=== PATIENT | male | born 1955 | race Asian ===

== ENCOUNTER 2021-08-02 12:02 | Inpatient (IN) ==
[2021-08-02] MEDS ORDERED: MAGNESIUM SULF RIDER 4 GM/100 ML PREMIX IV PRN (12:58)
[2021-08-02] MEDS ORDERED: ACETAMINOPHEN 325 MG TABLET PO PRN (12:58)
[2021-08-02] MEDS ORDERED: MORPHINE 4 MG/1 ML VIAL IV PRN (12:58)
[2021-08-02] MEDS ORDERED: MAGNESIUM SULF RIDER 2 GM/50 ML PREMIX IV PRN (12:58)
[2021-08-02] MEDS ORDERED: GLUCAGON 1 MG VIAL IM PRN ×2 (13:13→14:08)
[2021-08-02] MEDS ORDERED: DEXTROSE 10% 250 ML BAG IV PRN (13:13)
[2021-08-02] MEDS ORDERED: ENOXAPARIN 100 MG/ML SYRINGE SUBCUT ONE (13:30)
[2021-08-02 13:49] LABS: Basophils % 0.6 % (0.0-0.8); Eosinophils % 0.6 % (0.00-10.9); Hematocrit 30.3 VOL% (42.0-52.0); Hemoglobin 9.8 GM/DL (14.0-18.0); Immature Granulocytes % 0.4 %; Immature Granulocytes Absolute 0.03 #; Lymphocytes # 0.9 10*3/uL (1.4-4.0); Lymphocytes % 12.3 % (21.2-54.2); Mean Corpuscular HGB Conc 32.3 GM/DL (32-36); Mean Corpuscular Volume 84.9 FL (87-102); Mean Platelet Volume 12.2 FL (9.6-12.0); Monocytes % 6.3 % (1.7-12.7); Neutrophils % 79.8 % (38.7-73.9); Platelet Count 242 T/CUMM (130-400); Red Blood Count 3.57 MC/CUMM (3.8-5.5); White Blood Count 7.1 T/CUMM (4-12)
[2021-08-02] MEDS ORDERED: POTASSIUM CHLORIDE RIDER 10 MEQ/100 ML PREMIX IV PRN (14:06)
[2021-08-02] MEDS ORDERED: DEXTROSE 50% 25 GM/50 ML VIAL IV PRN (14:08)
[2021-08-02 14:18] LABS: Albumin 3.7 G/DL (3.4-5.0); Bilirubin,Total 0.5 MG/DL (0.20-1.00); Calcium 8.5 MG/DL (8.5-10.1); Osmolality,Calculated 299.4 MOS/KG (273-304); Potassium 4.8 MMOL/L (3.5-5.1); Thyroid Stimulating Hormone 0.129 uIU/ml (0.358-3.74); Total Protein 7.4 G/DL (6.4-8.2)
[2021-08-02] MEDS: NITROGLYCERIN 2% OINT 1 INCH/GM PACK TOP SCH ×2 (16:08→18:26)
[2021-08-02] MEDS ORDERED: ASPIRIN CHEW 81 MG TABLET PO ONE (16:09)
[2021-08-02] MEDS: glipiZIDE 10 MG TABLET PO SCH (18:24)
[2021-08-02] MEDS: INSULIN REGULAR 100 UNIT/ML SUBCUT SCH ×2 (18:55→21:17)
[2021-08-02] MEDS: carvediloL 3.125 MG TABLET PO SCH (21:10)
[2021-08-02] MEDS: ATORVASTATIN 40 MG TABLET PO SCH (21:10)
[2021-08-03] MEDS: NITROGLYCERIN 2% OINT 1 INCH/GM PACK TOP SCH ×4 (02:06→17:30)
[2021-08-03 05:47] LABS: Basophils # 0.1 10*3/uL (0.0-0.2); Basophils % 0.9 % (0.0-0.8); Eosinophils # 0.2 10*3/uL (0.0-0.87); Eosinophils % 3.3 % (0.00-10.9); Hematocrit 27.2 VOL% (42.0-52.0); Hemoglobin 8.8 GM/DL (14.0-18.0); Immature Granulocytes % 0.4 %; Immature Granulocytes Absolute 0.02 #; Lymphocytes # 1.5 10*3/uL (1.4-4.0); Mean Corpuscular HGB Conc 32.4 GM/DL (32-36); Mean Corpuscular Volume 84.7 FL (87-102); Mean Platelet Volume 12.8 FL (9.6-12.0); Monocytes % 10.7 % (1.7-12.7); Neutrophils % 57.7 % (38.7-73.9); Platelet Count 222 T/CUMM (130-400); Red Blood Count 3.21 MC/CUMM (3.8-5.5); White Blood Count 5.5 T/CUMM (4-12)
[2021-08-03 06:14] LABS: Albumin 3.1 G/DL (3.4-5.0); Bilirubin,Total 1.4 MG/DL (0.20-1.00); Calcium 8.4 MG/DL (8.5-10.1); Potassium 4.8 MMOL/L (3.5-5.1); Risk Ratio 3.96; Total Protein 6.4 G/DL (6.4-8.2); VLDL Cholesterol 19.6 MG/DL
[2021-08-03] MEDS: SODIUM CHLORIDE 0.9% 1,000 ML IV SCH ×3 (06:56→17:44)
[2021-08-03] MEDS: INSULIN REGULAR 100 UNIT/ML SUBCUT SCH ×4 (07:57→21:14)
[2021-08-03] MEDS ORDERED: HEPARIN 5,000 UNIT/1 ML VIAL IV ONE (08:00)
[2021-08-03] MEDS: HEPARIN DRIP 25,000 UNITS/500 ML PREMIX IV SCH (08:39)
[2021-08-03] MEDS: carvediloL 3.125 MG TABLET PO SCH (09:55)
[2021-08-03] MEDS: ASPIRIN EC 81 MG TABLET PO SCH (09:55)
[2021-08-03] MEDS ORDERED: DEXTROSE 50% 25 GM/50 ML VIAL IV PRN (10:19)
[2021-08-03 10:55] LABS: % Iron Saturation 14.4 % (18-50); Ferritin 40.7 ng/mL (26-388)
[2021-08-03 10:59] LABS: Folate 9.84 NG/ML (5.38-24.0)
[2021-08-03] MEDS: sitaGLIPtin 100 MG TABLET PO SCH (11:17)
[2021-08-03] MEDS: PANTOPRAZOLE 40 MG TABLET PO SCH (11:17)
[2021-08-03] MEDS: PIOGLITAZONE 15 MG TABLET PO SCH (11:17)
[2021-08-03] MEDS: glipiZIDE 10 MG TABLET PO SCH ×2 (11:17→16:57)
[2021-08-03 11:39] LABS: Basophils # 0.1 10*3/uL (0.0-0.2); Basophils % 0.8 % (0.0-0.8); Eosinophils # 0.1 10*3/uL (0.0-0.87); Eosinophils % 1.7 % (0.00-10.9); Hematocrit 30.7 VOL% (42.0-52.0); Immature Granulocytes % 0.3 %; Immature Granulocytes Absolute 0.02 #; Lymphocytes # 1.2 10*3/uL (1.4-4.0); Lymphocytes % 16.1 % (21.2-54.2); Mean Corpuscular HGB Conc 32.6 GM/DL (32-36); Mean Platelet Volume 13.6 FL (9.6-12.0); Monocytes % 6.4 % (1.7-12.7); Neutrophils % 74.7 % (38.7-73.9); Platelet Count 186 T/CUMM (130-400); Red Blood Count 3.61 MC/CUMM (3.8-5.5); Red Cell Distribution Width 14.1 % (9.3-17.3); White Blood Count 7.5 T/CUMM (4-12)
[2021-08-03] MEDS ORDERED: POTASSIUM CHLORIDE RIDER 10 MEQ/100 ML PREMIX IV PRN (13:14)
[2021-08-03] MEDS ORDERED: MORPHINE 2 MG/1 ML SYRINGE IV PRN (14:33)
[2021-08-03] MEDS: ACETYLCYSTEINE 600 MG CAPSULE PO SCH (21:16)
[2021-08-03] MEDS: ATORVASTATIN 40 MG TABLET PO SCH (21:16)
[2021-08-04] MEDS: NITROGLYCERIN 2% OINT 1 INCH/GM PACK TOP SCH ×3 (00:55→13:12)
[2021-08-04] MEDS: SODIUM CHLORIDE 0.9% 1,000 ML IV SCH ×2 (02:50→07:52)
[2021-08-04 04:52] LABS: Basophils % 0.4 % (0.0-0.8); Eosinophils # 0.1 10*3/uL (0.0-0.87); Eosinophils % 1.6 % (0.00-10.9); Hematocrit 27.5 VOL% (42.0-52.0); Hemoglobin 8.6 GM/DL (14.0-18.0); Immature Granulocytes % 0.4 %; Immature Granulocytes Absolute 0.04 #; Lymphocytes # 1.5 10*3/uL (1.4-4.0); Lymphocytes % 16.9 % (21.2-54.2); Mean Corpuscular HGB Conc 31.3 GM/DL (32-36); Mean Corpuscular Volume 88.1 FL (87-102); Mean Platelet Volume 13.6 FL (9.6-12.0); Neutrophils % 72.7 % (38.7-73.9); Platelet Count 208 T/CUMM (130-400); Red Blood Count 3.12 MC/CUMM (3.8-5.5); Red Cell Distribution Width 14.1 % (9.3-17.3)
[2021-08-04 05:07] LABS: Calcium 8.2 MG/DL (8.5-10.1); Osmolality,Calculated 296.2 MOS/KG (273-304); Potassium 4.4 MMOL/L (3.5-5.1)
[2021-08-04] MEDS ORDERED: DEXTROSE 50% 25 GM/50 ML VIAL IV PRN (07:50)
[2021-08-04] MEDS: ASPIRIN EC 81 MG TABLET PO SCH (09:32)
[2021-08-04] MEDS: PANTOPRAZOLE 40 MG TABLET PO SCH (09:33)
[2021-08-04] MEDS: CLOPIDOGREL 75 MG TABLET PO SCH (09:33)
[2021-08-04] MEDS: ACETYLCYSTEINE 600 MG CAPSULE PO SCH ×2 (09:33→22:36)
[2021-08-04] MEDS: HEPARIN DRIP 25,000 UNITS/500 ML PREMIX IV SCH (09:57)
[2021-08-04] MEDS: INSULIN REGULAR 100 UNIT/ML SUBCUT SCH ×3 (11:25→17:06)
[2021-08-04] MEDS: PIOGLITAZONE 15 MG TABLET PO SCH (11:25)
[2021-08-04] MEDS: glipiZIDE 10 MG TABLET PO SCH ×2 (11:25→17:05)
[2021-08-04] MEDS: sitaGLIPtin 100 MG TABLET PO SCH (11:25)
[2021-08-04] MEDS: ATORVASTATIN 40 MG TABLET PO SCH (22:36)
[2021-08-04] MEDS: guaiFENesin 200 MG/10 ML UDCUP PO PRN (22:38)
[2021-08-05] MEDS: NITROGLYCERIN 2% OINT 1 INCH/GM PACK TOP SCH ×5 (00:02→17:08)
[2021-08-05] MEDS: INSULIN REGULAR 100 UNIT/ML SUBCUT SCH ×5 (00:32→21:05)
[2021-08-05] MEDS: HEPARIN DRIP 25,000 UNITS/500 ML PREMIX IV SCH ×2 (05:43→08:37)
[2021-08-05 06:01] LABS: Basophils # 0.1 10*3/uL (0.0-0.2); Basophils % 0.5 % (0.0-0.8); Eosinophils # 0.1 10*3/uL (0.0-0.87); Eosinophils % 1.2 % (0.00-10.9); Hematocrit 27.6 VOL% (42.0-52.0); Hemoglobin 8.8 GM/DL (14.0-18.0); Immature Granulocytes % 0.5 %; Immature Granulocytes Absolute 0.05 #; Lymphocytes # 1.9 10*3/uL (1.4-4.0); Lymphocytes % 18.7 % (21.2-54.2); Mean Corpuscular HGB Conc 31.9 GM/DL (32-36); Mean Platelet Volume 13.3 FL (9.6-12.0); Monocytes % 9.6 % (1.7-12.7); Neutrophils % 69.5 % (38.7-73.9); Platelet Count 197 T/CUMM (130-400); Red Blood Count 3.21 MC/CUMM (3.8-5.5); Red Cell Distribution Width 14.2 % (9.3-17.3); White Blood Count 10.1 T/CUMM (4-12)
[2021-08-05 06:23] LABS: Calcium 8.2 MG/DL (8.5-10.1)
[2021-08-05] MEDS: ASPIRIN EC 81 MG TABLET PO SCH (09:51)
[2021-08-05] MEDS: CLOPIDOGREL 75 MG TABLET PO SCH (09:51)
[2021-08-05] MEDS: ACETYLCYSTEINE 600 MG CAPSULE PO SCH ×2 (09:51→22:02)
[2021-08-05] MEDS: PANTOPRAZOLE 40 MG TABLET PO SCH (09:51)
[2021-08-05] MEDS: sitaGLIPtin 100 MG TABLET PO SCH (09:55)
[2021-08-05] MEDS: PIOGLITAZONE 15 MG TABLET PO SCH (09:55)
[2021-08-05] MEDS: glipiZIDE 10 MG TABLET PO SCH ×2 (09:55→17:08)
[2021-08-05] MEDS ORDERED: DIAZEPAM 5 MG TABLET PO STA (12:03)
[2021-08-05] MEDS ORDERED: HEPARIN/NACL 0.9% 2 UNITS/ML 3,000 UNIT/1,500 ML BAG IV ONE (12:23)
[2021-08-05] MEDS ORDERED: LIDOCAINE 1% 20 ML VIAL ONE (12:23)
[2021-08-05] MEDS ORDERED: fentaNYL 100 MCG/2 ML VIAL ONE (12:58)
[2021-08-05] MEDS ORDERED: MIDAZOLAM 2 MG/2 ML VIAL ONE (12:58)
[2021-08-05] MEDS ORDERED: DEXTROSE 50% 25 GM/50 ML VIAL IV PRN (13:35)
[2021-08-05] MEDS ORDERED: GLUCAGON 1 MG VIAL IM PRN (13:35)
[2021-08-05] MEDS ORDERED: SODIUM CHLORIDE 0.9% 1,000 ML IV SCH (14:00)
[2021-08-05] MEDS: ATORVASTATIN 40 MG TABLET PO SCH (21:58)
[2021-08-05] MEDS: SODIUM CHLORIDE 0.9% 1,000 ML IV SCH (21:58)
[2021-08-05] MEDS: guaiFENesin 200 MG/10 ML UDCUP PO PRN (22:02)
[2021-08-05] MEDS: ZALEPLON 5 MG CAPSULE PO PRN (22:02)
[2021-08-06] MEDS: NITROGLYCERIN 2% OINT 1 INCH/GM PACK TOP SCH ×6 (00:20→23:02)
[2021-08-06] MEDS: guaiFENesin 200 MG/10 ML UDCUP PO PRN ×2 (02:13→22:36)
[2021-08-06] MEDS: SODIUM CHLORIDE 0.9% 1,000 ML IV SCH ×2 (05:39→16:10)
[2021-08-06 05:40] LABS: Basophils % 0.5 % (0.0-0.8); Eosinophils # 0.1 10*3/uL (0.0-0.87); Eosinophils % 0.7 % (0.00-10.9); Hematocrit 29.2 VOL% (42.0-52.0); Hemoglobin 8.9 GM/DL (14.0-18.0); Immature Granulocytes % 0.6 %; Immature Granulocytes Absolute 0.05 #; Lymphocytes # 1.6 10*3/uL (1.4-4.0); Lymphocytes % 17.8 % (21.2-54.2); Mean Corpuscular HGB Conc 30.5 GM/DL (32-36); Mean Corpuscular Volume 90.1 FL (87-102); Mean Platelet Volume 13.9 FL (9.6-12.0); Monocytes % 10.7 % (1.7-12.7); Neutrophils % 69.7 % (38.7-73.9); Platelet Count 223 T/CUMM (130-400); Red Blood Count 3.24 MC/CUMM (3.8-5.5); Red Cell Distribution Width 14.5 % (9.3-17.3); White Blood Count 8.7 T/CUMM (4-12)
[2021-08-06 05:44] LABS: Osmolality,Calculated 287.8 MOS/KG (273-304); Potassium 4.1 MMOL/L (3.5-5.1)
[2021-08-06] MEDS: INSULIN REGULAR 100 UNIT/ML SUBCUT SCH ×4 (08:11→21:05)
[2021-08-06] MEDS: PIOGLITAZONE 15 MG TABLET PO SCH (09:04)
[2021-08-06] MEDS: sitaGLIPtin 100 MG TABLET PO SCH (09:04)
[2021-08-06] MEDS: ASPIRIN EC 81 MG TABLET PO SCH (09:04)
[2021-08-06] MEDS: ACETYLCYSTEINE 600 MG CAPSULE PO SCH ×2 (09:04→21:04)
[2021-08-06] MEDS: glipiZIDE 10 MG TABLET PO SCH ×2 (09:04→16:13)
[2021-08-06] MEDS: PANTOPRAZOLE 40 MG TABLET PO SCH (09:05)
[2021-08-06] MEDS ORDERED: DEXTROSE 10% 250 ML BAG IV PRN (10:01)
[2021-08-06] MEDS: ATORVASTATIN 40 MG TABLET PO SCH (21:04)
[2021-08-07] MEDS: SODIUM CHLORIDE 0.9% 1,000 ML IV SCH ×3 (02:00→22:27)
[2021-08-07] MEDS: diphenhydrAMINE CAP 25 MG CAPSULE PO PRN ×2 (02:08→20:44)
[2021-08-07] MEDS: ONDANSETRON 4 MG/2 ML VIAL IV PRN (05:28)
[2021-08-07 06:22] LABS: Basophils % 0.3 % (0.0-0.8); Eosinophils # 0.1 10*3/uL (0.0-0.87); Eosinophils % 0.5 % (0.00-10.9); Hematocrit 28.8 VOL% (42.0-52.0); Hemoglobin 8.9 GM/DL (14.0-18.0); Immature Granulocytes % 0.9 %; Lymphocytes # 1.4 10*3/uL (1.4-4.0); Lymphocytes % 12.6 % (21.2-54.2); Mean Corpuscular HGB Conc 30.9 GM/DL (32-36); Mean Corpuscular Volume 89.4 FL (87-102); Mean Platelet Volume 14.6 FL (9.6-12.0); Monocytes % 8.3 % (1.7-12.7); Neutrophils % 77.4 % (38.7-73.9); Platelet Count 220 T/CUMM (130-400); Red Blood Count 3.22 MC/CUMM (3.8-5.5); Red Cell Distribution Width 14.6 % (9.3-17.3); White Blood Count 11.5 T/CUMM (4-12)
[2021-08-07 06:34] LABS: Calcium 8.5 MG/DL (8.5-10.1); Potassium 4.6 MMOL/L (3.5-5.1)
[2021-08-07] MEDS: NITROGLYCERIN 2% OINT 1 INCH/GM PACK TOP SCH ×3 (06:58→18:04)
[2021-08-07] MEDS: INSULIN REGULAR 100 UNIT/ML SUBCUT SCH ×4 (08:48→21:40)
[2021-08-07] MEDS: ACETYLCYSTEINE 600 MG CAPSULE PO SCH ×2 (08:48→20:43)
[2021-08-07] MEDS: PIOGLITAZONE 15 MG TABLET PO SCH (08:48)
[2021-08-07] MEDS: glipiZIDE 10 MG TABLET PO SCH ×2 (08:49→16:44)
[2021-08-07] MEDS: sitaGLIPtin 100 MG TABLET PO SCH (08:49)
[2021-08-07] MEDS: PANTOPRAZOLE 40 MG TABLET PO SCH (08:49)
[2021-08-07] MEDS: ASPIRIN EC 81 MG TABLET PO SCH (08:49)
[2021-08-07] MEDS ORDERED: BENZONATATE 100 MG CAPSULE PO PRN (09:25)
[2021-08-07] MEDS ORDERED: ENOXAPARIN 100 MG/ML SYRINGE SUBCUT ONE (09:44)
[2021-08-07] MEDS: HEPARIN DRIP 25,000 UNITS/500 ML PREMIX IV SCH (11:03)
[2021-08-07] MEDS: ATORVASTATIN 40 MG TABLET PO SCH (20:43)
[2021-08-07] MEDS: FERROUS SULFATE 325 MG TABLET PO SCH (20:43)
[2021-08-08] MEDS: ZALEPLON 5 MG CAPSULE PO PRN
[2021-08-08] MEDS: NITROGLYCERIN 2% OINT 1 INCH/GM PACK TOP SCH ×4 (00:21→18:41)
[2021-08-08 04:27] LABS: Arterial Base Excess iSTAT -6 MMOL/L (-2.5-2.5); Arterial Bicarbonate iSTAT 18.8 MMOL/L (20-26); Arterial O2 Saturation iSTAT 96 % (95-100); Arterial PCO2 iSTAT 34 MM HG (35-48); Arterial PO2 iSTAT 87 MM HG (80-95); Arterial Total CO2 iSTAT 20 MMO/L (23-27)
[2021-08-08 06:01] LABS: Basophils # 0.1 10*3/uL (0.0-0.2); Basophils % 0.5 % (0.0-0.8); Eosinophils # 0.2 10*3/uL (0.0-0.87); Eosinophils % 1.5 % (0.00-10.9); Hematocrit 26.3 VOL% (42.0-52.0); Hemoglobin 8.3 GM/DL (14.0-18.0); Immature Granulocytes % 0.8 %; Immature Granulocytes Absolute 0.09 #; Lymphocytes # 1.8 10*3/uL (1.4-4.0); Lymphocytes % 15.9 % (21.2-54.2); Mean Corpuscular HGB Conc 31.6 GM/DL (32-36); Mean Corpuscular Volume 89.5 FL (87-102); Mean Platelet Volume 14.7 FL (9.6-12.0); Monocytes % 12.1 % (1.7-12.7); NRBC # 0.04 10*3/uL; Neutrophils % 69.2 % (38.7-73.9); Platelet Count 205 T/CUMM (130-400); Red Blood Count 2.94 MC/CUMM (3.8-5.5); Red Cell Distribution Width 14.6 % (9.3-17.3)
[2021-08-08 06:19] LABS: Albumin 3.1 G/DL (3.4-5.0); Bilirubin,Total 0.6 MG/DL (0.20-1.00); CKMB % 1.6 %; Calcium 8.4 MG/DL (8.5-10.1); Osmolality,Calculated 277.4 MOS/KG (273-304); Total Protein 6.9 G/DL (6.4-8.2)
[2021-08-08] MEDS: INSULIN REGULAR 100 UNIT/ML SUBCUT SCH ×3 (07:49→17:18)
[2021-08-08] MEDS: ASPIRIN EC 81 MG TABLET PO SCH (08:36)
[2021-08-08] MEDS: PIOGLITAZONE 15 MG TABLET PO SCH (08:36)
[2021-08-08] MEDS: SODIUM CHLORIDE 0.9% 1,000 ML IV SCH ×2 (08:36→18:42)
[2021-08-08] MEDS: FERROUS SULFATE 325 MG TABLET PO SCH (08:36)
[2021-08-08] MEDS: ACETYLCYSTEINE 600 MG CAPSULE PO SCH (08:36)
[2021-08-08] MEDS: PANTOPRAZOLE 40 MG TABLET PO SCH (08:36)
[2021-08-08] MEDS: glipiZIDE 10 MG TABLET PO SCH ×2 (08:36→17:18)
[2021-08-08] MEDS ORDERED: carvediloL 3.125 MG TABLET PO SCH (09:00)
[2021-08-08] MEDS ORDERED: CHLORHEXIDINE 0.12% ORAL RINSE 60 ML BOTTLE SWISH/SPIT SCH (09:00)
[2021-08-08] MEDS: HEPARIN DRIP 25,000 UNITS/500 ML PREMIX IV SCH (09:01)
[2021-08-08 11:41] VITALS: BP 93/60
[2021-08-08] MEDS: ONDANSETRON 4 MG/2 ML VIAL IV PRN (12:21)
[2021-08-08] MEDS ORDERED: EPINEPHrine 1 MG/10 ML SYRINGE IV ONE (13:11)
[2021-08-08] MEDS ORDERED: SODIUM BICARBONATE 50 MEQ/50 ML SYRINGE IV ONE (13:13)
[2021-08-08] MEDS ORDERED: CALCIUM CHLORIDE 1,000 MG/10 ML SYRINGE IV ONE (13:14)
[2021-08-08] MEDS ORDERED: SODIUM CHLORIDE 0.9% 1,000 ML IV SCH (15:00)
[2021-08-08] MEDS ORDERED: CHLORHEXIDINE 4% SOLN 118 ML BOTTLE TOP SCH (16:00)
[2021-08-09] MEDS ORDERED: CEFUROXIME INJ 1,500 MG in SODIUM CHLORIDE 0.9% 100 ML IV ONE (05:00)
[2021-08-09] MEDS ORDERED: DIAZEPAM 5 MG TABLET PO ONE (05:30)
== END 2021-08-08 13:24 | disposition expired ==
LOC: N.TELES 12:27 → INTOOBSV 12:27
PROVIDERS: ADMIT Internal Medicine Cardiovascular Disease; ATTEND Internal Medicine Cardiovascular Disease